=== PATIENT | female | born 1965 | race Caucasian/White ===

== ENCOUNTER 2022-07-06 01:10 | Inpatient (IN) | payer BC ==
[2022-07-06] MEDS ORDERED: Naloxone HCl 0.4 mg/ml Vial ONE ×3 (01:28→04:17)
[2022-07-06 01:39] LABS: #Eosinphils 0.1 thou/uL (0.0-0.7); #Lymphocytes 1.8 thou/uL (1.20-3.40); #Monocytes 0.6 thou/uL (0.11-0.59); #Neutrophils 7.3 thou/uL (1.40-6.50); %Basophils 0.2 % (0.0-1.0); %Eosinophils 0.6 % (0.0-10.0); %Lymphocytes 18.5 % (21.0-51.0); %Monocytes 6.4 % (0.0-10.0); %Neutrophils 74.3 % (42.0-75.0); Hemoglobin 14.4 g/dL (12.0-16.0); Mean Corpuscular HGB CONC 34.5 g/dL (32.0-36.0); Mean Corpuscular Hemoglobin 33.3 pg (27.0-31.0); Mean Corpuscular Volume 96.5 fl (78.0-98.0); Mean Platelet Volume 8.7 fL (7.4-10.4); Platelet Count 198 10x3/uL (130-400); RBC Distribution Width 11.9 % (11.5-14.5); Red Blood Cell (RBC) Count 4.33 mill/uL (4.20-5.40); White Blood Cell (WBC) Count 9.8 10x3/uL (4.8-10.8)
[2022-07-06 01:52] LABS: ALT (SGPT) 43 U/L (8-55); AST (SGOT) 20 U/L (5-34); Albumin 4.1 g/dL (3.5-5.0); Alkaline Phosphatase 86 U/L (40-110); Anion Gap 17 mmol/L (10-20); BUN (Urea Nitrogen) 10 mg/dL (9.8-20.1); Bilirubin, Total 0.2 mg/dL (0.2-1.2); Calc. Creatinine Clearance 0 mL/min (70-130); Carbon Dioxide 22 mmol/L (22-29); Chloride 101 mmol/L (98-107); Estimated GFR 60; Globulin 2.4 g/dL (2.4-3.5); Glucose 116 mg/dL (70-105); Lipase 94 U/L (8-78); PTT 24.7 sec (22.9-36.1); Potassium 3.3 mmol/L (3.5-5.1); Protein, Total 6.5 g/dL (6.0-8.3); Prothrombin Time 13.1 sec (12.0-14.7); Sodium 137 mmol/L (136-145)
[2022-07-06 01:53] LABS: Alcohol 167 mg/dL (Less than 10); Magnesium 2.1 mg/dL (1.6-2.6); Salicylate Less than 8.0 mg/dL (15.0-30.0)
[2022-07-06] MEDS ORDERED: Pot Chloride/Pot Bicarb/Cit Ac 25 mEq Effervescent Tablet ONE (03:32)
[2022-07-06] MEDS ORDERED: Potassium Bicarbonate/Cit Ac 25 MEQ TAB PO SCH (03:45)
[2022-07-06] MEDS ORDERED: Sodium Chloride 0.9% 1,000 ML IV SCH (04:00)
[2022-07-06] MEDS ORDERED: Ondansetron PF 4 MG/2 ML Vial ONE (04:10)
[2022-07-06] MEDS: Ondansetron PF 4 MG/2 ML Vial IVP PRN ×2 (04:22→14:45)
[2022-07-06] MEDS ORDERED: Potassium Chloride 20 MEQ/100 ML PREMIX BAG ONE (04:27)
[2022-07-06] MEDS ORDERED: Potassium Chloride 10 MEQ in Premix Bag 1 BAG IVPB SCH (04:30)
[2022-07-06] MEDS: Sodium Chloride 0.9% 1,000 ML IV SCH ×3 (04:36→18:39)
[2022-07-06 05:22] LABS: Bilirubin Negative (Negative); Blood, Urine Negative (Negative); Clarity Clear (Clear); Glucose, Urine (Dipstick) Normal (Negative); Ketone, Urine Negative (Negative); Leukocyte Negative Leu/uL (Negative); Nitrite Negative (Negative); Protein, Urine (Dipstick) Negative (Neg-Trace); Specific Gravity, Urine 1.007 (1.002-1.036); Urobilinogen Normal mg/dL (Less than 2); pH, Urine 6.5 (5.0-9.0)
[2022-07-06 06:04] LABS: Lactic Acid 3.9 mmol/L (0.5-2.2)
[2022-07-06] MEDS ORDERED: NOREPINEPHRINE 8 MG/250 ML-D5W 250 ML ONE (06:15)
[2022-07-06] MEDS ORDERED: NOREPINEPHRINE 8 MG/250 ML-D5W 250 ML IVPB SCH ×2 (06:15→06:45)
[2022-07-06 08:04] LABS: Lactic Acid 2.9 mmol/L (0.5-2.2)
[2022-07-06 08:12] LABS: Magnesium 1.7 mg/dL (1.6-2.6); Potassium 4.6 mmol/L (3.5-5.1)
[2022-07-06] MEDS: Folic Acid 1 MG TAB PO SCH (09:00)
[2022-07-06] MEDS ORDERED: Enoxaparin Sodium 40 MG/0.4 ML SYRINGE SC SCH (09:00)
[2022-07-06] MEDS: Multivitamin W/ Minerals 1 TAB PO SCH (09:00)
[2022-07-06] MEDS: Thiamine 100 MG TAB PO SCH (09:00)
[2022-07-06 10:46] VITALS: BMI 31.8
[2022-07-06] MEDS ORDERED: DEXTROSE 5% IV SCH ×3 (12:00→17:00)
[2022-07-06] MEDS ORDERED: WATER IV SCH ×3 (12:00→17:00)
[2022-07-06] MEDS ORDERED: ACETYLCYSTEINE IV SCH ×3 (12:00→17:00)
[2022-07-06 13:24] LABS: ALT (SGPT) 33 U/L (8-55); AST (SGOT) 16 U/L (5-34); Albumin 3.6 g/dL (3.5-5.0); Alkaline Phosphatase 74 U/L (40-110); Anion Gap 11 mmol/L (10-20); BUN (Urea Nitrogen) 10 mg/dL (9.8-20.1); Bilirubin, Total 0.3 mg/dL (0.2-1.2); Calc. Creatinine Clearance 97 mL/min (70-130); Carbon Dioxide 25 mmol/L (22-29); Chloride 108 mmol/L (98-107); Estimated GFR 85; Globulin 2.1 g/dL (2.4-3.5); Glucose 106 mg/dL (70-105); Potassium 4.1 mmol/L (3.5-5.1); Protein, Total 5.7 g/dL (6.0-8.3); Sodium 140 mmol/L (136-145)
[2022-07-06 18:44] LABS: Acetaminophen Less than 10.0 mcg/mL (10.0-30.0)
[2022-07-06 19:00] LABS: Amphetamine Detected (NotDetected); Barbiturates Screen Not Detected (NotDetected); Benzodiazepine Screen Not Detected (NotDetected); Cocaine Metabolite Screen Not Detected (NotDetected); Methadone Not Detected (NotDetected); Methamphetamine Detected (NotDetected); Opiate Screen Detected (NotDetected); Oxycodone Screen Not Detected (NotDetected); Phencyclidine (PCP) Not Detected (NotDetected); THC/Cannabinoid Screen Not Detected (NotDetected); Tricyclic Screen Not Detected (NotDetected)
[2022-07-07 06:07] LABS: ALT (SGPT) 25 U/L (8-55); AST (SGOT) 13 U/L (5-34); Acetaminophen Less than 10.0 mcg/mL (10.0-30.0); Albumin 3.2 g/dL (3.5-5.0); Alkaline Phosphatase 67 U/L (40-110); Anion Gap 9 mmol/L (10-20); BUN (Urea Nitrogen) 7 mg/dL (9.8-20.1); Bilirubin, Total 0.3 mg/dL (0.2-1.2); Calc. Creatinine Clearance 116 mL/min (70-130); Calcium 8.3 mg/dL (7.8-10.44); Carbon Dioxide 28 mmol/L (22-29); Chloride 108 mmol/L (98-107); Estimated GFR 100; Globulin 2.1 g/dL (2.4-3.5); Glucose 104 mg/dL (70-105); Lipase 31 U/L (8-78); Magnesium 1.8 mg/dL (1.6-2.6); Potassium 3.7 mmol/L (3.5-5.1); Protein, Total 5.3 g/dL (6.0-8.3); Sodium 141 mmol/L (136-145)
[2022-07-07 06:12] LABS: #Lymphocytes 1.3 thou/uL (1.20-3.40); #Monocytes 0.5 thou/uL (0.11-0.59); #Neutrophils 6.8 thou/uL (1.40-6.50); %Basophils 0.2 % (0.0-1.0); %Eosinophils 2.2 % (0.0-10.0); %Monocytes 5.3 % (0.0-10.0); %Neutrophils 77.3 % (42.0-75.0); Hemoglobin 12.6 g/dL (12.0-16.0); Mean Corpuscular HGB CONC 33.8 g/dL (32.0-36.0); Mean Corpuscular Hemoglobin 33.8 pg (27.0-31.0); Mean Corpuscular Volume 99.8 fl (78.0-98.0); Platelet Count 105 10x3/uL (130-400); RBC Distribution Width 12.2 % (11.5-14.5); Red Blood Cell (RBC) Count 3.72 mill/uL (4.20-5.40); White Blood Cell (WBC) Count 8.8 10x3/uL (4.8-10.8)
[2022-07-07 06:13] LABS: #Eosinphils 0.2 thou/uL (0.0-0.7); Platelet Morphology Comment Appears Decreased
[2022-07-07] MEDS ORDERED: Enoxaparin Sodium 40 MG/0.4 ML SYRINGE SC SCH (09:00)
[2022-07-07] MEDS: Folic Acid 1 MG TAB PO SCH (09:05)
[2022-07-07] MEDS: Thiamine 100 MG TAB PO SCH (09:05)
[2022-07-07] MEDS: Multivitamin W/ Minerals 1 TAB PO SCH (09:05)
[2022-07-07 17:22] VITALS: BP 115/75; TEMP 98.8
[2022-07-07] MEDS ORDERED: Mometasone/Formoterol 200/5 60 PUFF INH SCH (18:30)
== END 2022-07-07 17:22 | DRG 918 ==
LOC: EDBD 01:10 → ERS 01:10 → ERHOLD 03:23 → CCU 07:59 → T4-A 07-07 12:32
PROVIDERS: ADMIT Internal Medicine; ATTEND Internal Medicine
PROC: 3E033XZ Introduction of Vasopressor into Peripheral Vein, Percutaneous Approach (ICD-10-PCS; principal; 2022-07-06)
DX: T39.1X2A Poisoning by 4-Aminophenol derivatives, intentional self-harm, initial encounter (principal); E87.20 Acidosis, unspecified; T43.212A Poisoning by selective serotonin and norepinephrine reuptake inhibitors, intentional self-harm, initial encounter; Z20.822 Contact with and (suspected) exposure to COVID-19; I10 Essential (primary) hypertension; F90.9 Attention-deficit hyperactivity disorder, unspecified type; F41.9 Anxiety disorder, unspecified; F32.A Depression, unspecified; I49.1 Atrial premature depolarization; I45.10 Unspecified right bundle-branch block; F17.210 Nicotine dependence, cigarettes, uncomplicated; I95.2 Hypotension due to drugs; E87.6 Hypokalemia; R94.31 Abnormal electrocardiogram [ECG] [EKG]; F32.9 Major depressive disorder, single episode, unspecified; J45.909 Unspecified asthma, uncomplicated; E88.09 Other disorders of plasma-protein metabolism, not elsewhere classified; F10.10 Alcohol abuse, uncomplicated; T40.2X2A Poisoning by other opioids, intentional self-harm, initial encounter; Z88.1 Allergy status to other antibiotic agents; Z98.890 Other specified postprocedural states; Z81.8 Family history of other mental and behavioral disorders; Z71.6 Tobacco abuse counseling; Z71.41 Alcohol abuse counseling and surveillance of alcoholic
CPT/HCPCS: 36415; 71045; 80053; 80143; 80306; 80307; 81003; 83605; 83690; 83735; 84484; 85025; 85610; 85730; 93005; J0132; J1650; J2310; J2405; J3480; J7050; J7070; U0003; U0005